=== PATIENT | male | born 1955 | race Two or more races ===

== ENCOUNTER 2018-09-21 00:37 | Emergency (ER) | payer SELFPAY ==
[~2018-09-21] VITALS: Ht 170.2 cm; Wt 74.2 kg
--- NOTE | 2018-09-21 00:51 | NUR ---
PG CODE LIS @0034
--- NOTE | 2018-09-21 00:55 | NUR ---
called in to donor network. Addendum: 09/21/18 at 0118 by JEN currently: pt candidate for donation. ref# [id number]
--- NOTE | 2018-09-21 01:05 | NUR ---
[facility] SHE WILL COME RETRIEVE THE PATIENT. ETA 45 MIN
--- NOTE | 2018-09-21 01:09 | NUR ---
PT ARRIVED WITH $1,565 IN [facility]. MONEY COUNTED BY SECURITY AND RN. SECURITY TOOK MONEY FOR SAFE KEEPING.
--- NOTE | 2018-09-21 01:32 | NUR ---
PLEASE REFER TO CODE SHEET FOR MEDS AND TIMES.
--- NOTE | 2018-09-21 01:38 | NUR ---
PT PLACED IN BODY BAG X2. TOE TAG STICKERED AND PLACED ON TOE. BODY BAG TAG APPLIED AND STICKERED. ONE BAG OF BELONGINGS CONTAINING SHOES AND SOCKS TAGGED AND STICKERED. PTS WALLET AND CONTENTS TAKEN BY SECURITY.
--- NOTE | 2018-09-21 02:20 | NUR ---
SEWER REQUESTED TO HAVE PTS BELONGINGS FROM SECURITY. SECURITY GAVE PTS MONEY AND WALLET TO SEWERSINAN WILEY. CORONERS BELONGINGS LIST SIGNED BY SEWER AND THIS RN AND PLACED IN CHART. PT HAS NOW LEFT WITH [facility].
[2018-09-21] MEDS ORDERED: SODIUM BICARB 8.4%, 50ML SYRINGE ONE (03:39)
[2018-09-21] MEDS ORDERED: EPINEPHRINE SYRINGE 0.1 MG/ML, 10ML ONE (03:39)
[2018-09-21] MEDS ORDERED: CODE BLUE RESPONSE XX ONE (03:39)
[2018-09-21] MEDS ORDERED: EPINEPHRINE 1 MG/ML, 1ML ONE (07:42)
== END 2018-09-21 01:47 | disposition expired ==
LOC: ED 00:45
DX: I46.9 Cardiac arrest, cause unspecified (principal)
CPT/HCPCS: 92950; 99285; J0171